=== PATIENT | male | born 1970 | race African-American/Black ===

== ENCOUNTER 2019-03-21 17:05 | Emergency (ER) | payer MEDICAID ==
[~2019-03-21] VITALS: Ht 182.9 cm; Wt 84.0 kg
[2019-03-21] MEDS ORDERED: KETOROLAC 60MG/2ML VIAL IM ONE (22:15)
[2019-03-21] MEDS ORDERED: HYDROCODONE/APAP 7.5/325MG 1 TAB TABLET PO ONE (22:15)
[2019-03-21 23:32] VITALS: BP 162/100
== END 2019-03-22 00:28 | disposition home or self-care (01) ==
LOC: ER 17:05
DX: S42.011A Anterior displaced fracture of sternal end of right clavicle, initial encounter for closed fracture (principal); F17.200 Nicotine dependence, unspecified, uncomplicated; W18.39XA Other fall on same level, initial encounter; Y93.67 Activity, basketball; Y92.310 Basketball court as the place of occurrence of the external cause; Y99.8 Other external cause status
CPT/HCPCS: 73030; 73050; 96372; 99283; J1885; Z7610; A4565